=== PATIENT | male | born 1950 | race Caucasian/White ===

== ENCOUNTER 2020-05-23 10:14 | Observation (INO) | payer MEDICARE ==
[2020-05-18 13:03] LABS: BASOPHILS % 0.6 % (0.0-1.0); EOSINOPHILS # (AUTO) 0.1 (0.0-0.4); EOSINOPHILS % 1.9 % (0.0-6.0); HEMATOCRIT 38.7 % (38.2-49.6); HEMOGLOBIN 12.4 g/dL (14.0-18.0); LYMPHOCYTES # (AUTO) 0.9 (1.0-3.2); LYMPHOCYTES % 18.9 % (18.0-39.1); MEAN CORPUSCULAR HEMOGLOBIN 29.7 pg (28-32); MEAN CORPUSCULAR VOLUME 92.8 fL (81-99); MONOCYTES # (AUTO) 0.5 (0.2-0.8); MONOCYTES % 10.3 % (4.4-11.3); NEUTROPHILS # (AUTO) 3.2 (2.1-6.9); NEUTROPHILS % 67.9 % (38.7-80.0); PLATELET COUNT 197 x10e3/uL (140-360); RED BLOOD COUNT 4.17 x10e6/uL (4.3-5.7); RED CELL DISTRIBUTION WIDTH 12.4 % (11.7-14.4)
[2020-05-18 13:23] LABS: ANION GAP 12.3 mmol/L (8-16); BLOOD UREA NITROGEN 29 mg/dL (7-26); BUN/CREATININE RATIO 32 (6-25); CALCIUM 9.5 mg/dL (8.4-10.2); CARBON DIOXIDE 30 mmol/L (22-29); CHLORIDE 101 mmol/L (98-107); EST GLOMERULAR FILTRATION RATE > 60 ML/MIN (60-); GLUCOSE 112 mg/dL (74-118); POTASSIUM 4.3 mmol/L (3.5-5.1); SODIUM 139 mmol/L (136-145)
--- NOTE | 2020-05-18 13:41 | Diagnostic Imaging Report ---
X-ray chest PA and lateral History: Preop BI-RADS and: None. Findings: Central airways unremarkable. Heart size borderline normal. Atherosclerotic aorta. No pleural effusion. No pneumothorax. Bilateral linear calcific densities on the diaphragmatic pleura suggestive of calcified pleural plaques. No significant focal lung nodules or infiltrates. Linear bilateral basilar lung opacities with suggestion of faint honeycombing. Low flat diaphragms on the lateral view. Degenerative changes of the visualized skeleton. Old healed left mid lateral rib fractures. Upper abdomen unremarkable. Impression: No acute disease. Possible emphysema. A chest CT should be considered. Signed by: Pablo Johnston MD on 05/18/2020 1:37 PM
[~2020-05-23] VITALS: Ht 177.8 cm; Wt 104.8 kg
[~2020-05-23 10:14] MED LIST: ALLOPURINOL100 MG PO; AMLODIPINE BESY10 MG PO; ASPIRIN81 MG PO; FLOMAX0.4 MG PO; FUROSEMIDE40 MG PO; LOSARTAN POTAS100 MG PO; ROPIVACAINE 246.25 MG, EPINEPHRINE HCL 1:1000 1ML 0.5 MG, CLONIDINE HCL 0.08 MG, KETORO... INJ ONE; TEMAZEPAM15 MG PO
[2020-05-23] MEDS ORDERED: GABAPENTIN 300 MG CAP ONE (10:52)
[2020-05-23] MEDS ORDERED: CELECOXIB 200 MG CAP ONE (10:52)
[2020-05-23] MEDS ORDERED: CEFAZOLIN SOD 1 GM/NS 50ML 100 ML IV ONE (10:52)
[2020-05-23] MEDS ORDERED: DEXAMETHASONE SOD PHOS 10 MG/1 ML VIAL ONE (10:52)
[2020-05-23] MEDS ORDERED: SODIUM CHLORIDE 0.9% 500ML 500 ML ONE (11:08)
[2020-05-23] MEDS ORDERED: VANCOMYCIN HCL 1,000 MG ONE (11:08)
[2020-05-23] MEDS ORDERED: BACITRACIN 50,000 UNIT VIAL ONE (11:09)
[2020-05-23] MEDS ORDERED: TRANEXAMIC ACID 1,000 MG/10 ML ML ONE (11:09)
[2020-05-23] MEDS ORDERED: BUPIVACAINE 7.5MG/ML /DEXTROSE 82.5MG/ML 2 ML AMP INJ ONE (11:14)
[2020-05-23] MEDS ORDERED: DOCUSATE SODIUM 100 MG CAP PO PRN (13:15)
[2020-05-23] MEDS ORDERED: ACETAMINOPHEN 650 MG SUPP PR PRN (13:15)
[2020-05-23] MEDS ORDERED: HYDROCODONE/APAP 5MG-325MG TAB PO PRN (13:15)
[2020-05-23] MEDS ORDERED: KETOROLAC TROMETHAMINE 30 MG/ML VIAL IV PRN (13:15)
[2020-05-23] MEDS ORDERED: DIPHENHYDRAMINE HCL INJ 50 MG/ML VIAL IV PRN (13:15)
[2020-05-23] MEDS ORDERED: HYDROCODONE/APAP 7.5MG-325MG 1 EA TAB PO PRN (13:15)
[2020-05-23] MEDS ORDERED: ONDANSETRON HCL INJ 2MG/ML 2ML 2 MG/ML VIAL IV PRN (13:15)
--- NOTE | 2020-05-23 13:43 | Diagnostic Imaging Report ---
EXAMINATION: PELVIS AP 1-2 VIEWS INDICATION: Postoperative COMPARISON: None FINDINGS: AP view of the pelvis demonstrates immediate postoperative findings of right total hip replacement. Alignment is anatomic. No unexpected fracture. Postoperative soft tissue emphysema. Surgical skin tessy in place. Mild degenerative changes of the [place] left hip joint. Scattered atherosclerotic arterial calcifications. IMPRESSION: Anatomic alignment status post right total hip replacement. Signed by: Nghia Fernandez MD on 05/23/2020 1:40 PM
[2020-05-23 14:45] VITALS: BP 169/71
--- NOTE | 2020-05-23 14:45 | NUR ---
pt arrived to room 102; pt awake, alert, no signs of distress.
--- NOTE | 2020-05-23 15:17 | NUR ---
DR OSBORN OFFICE PREARRANGED FOLLOWING DISCHARGE PLAN OF: HOME [address], [address]; [phone] HOME HEALTH WITH HOME CARE PROVIDERS CONFIRMED WITH [facility] [phone] DME 3 IN ONE COMMODE, CPM AND ROLLING WALKER WITH WHEELS. PROVIDED BY [employer] [facility] [phone] DANISH SIGNED AND ON CHART COPY LEFT WITH PATIENT GAVE CARD FOR QUESTIONS AND OR CONCERNS.
[2020-05-23 15:32] LABS: BASOPHILS % 0.1 % (0.0-1.0); EOSINOPHILS % 0.1 % (0.0-6.0); HEMATOCRIT 34.7 % (38.2-49.6); HEMOGLOBIN 11.3 g/dL (14.0-18.0); LYMPHOCYTES # (AUTO) 0.4 (1.0-3.2); LYMPHOCYTES % 4.3 % (18.0-39.1); MEAN CORPUSCULAR HEMOGLOBIN 29.6 pg (28-32); MEAN CORPUSCULAR HGB CONC 32.6 g/dL (31-35); MEAN CORPUSCULAR VOLUME 90.8 fL (81-99); MONOCYTES # (AUTO) 0.1 (0.2-0.8); MONOCYTES % 0.9 % (4.4-11.3); NEUTROPHILS # (AUTO) 7.7 (2.1-6.9); NEUTROPHILS % 94.1 % (38.7-80.0); PLATELET COUNT 181 x10e3/uL (140-360); RED BLOOD COUNT 3.82 x10e6/uL (4.3-5.7); RED CELL DISTRIBUTION WIDTH 12.3 % (11.7-14.4)
[2020-05-23 15:34] VITALS: BP 169/71
[2020-05-23 15:49] LABS: BLOOD UREA NITROGEN 27 mg/dL (7-26); BUN/CREATININE RATIO 28 (6-25); CALCIUM 9.1 mg/dL (8.4-10.2); CARBON DIOXIDE 26 mmol/L (22-29); CHLORIDE 104 mmol/L (98-107); CREATININE, SERUM 0.96 mg/dL (0.72-1.25); EST GLOMERULAR FILTRATION RATE > 60 ML/MIN (60-); GLUCOSE 181 mg/dL (74-118); SODIUM 139 mmol/L (136-145)
[2020-05-23] MEDS: SODIUM CHLORIDE 0.9% 1000ML 1,000 ML IV SCH ×2 (16:19→23:15)
[2020-05-23] MEDS: ASPIRIN 325 MG TAB PO SCH (16:56)
[2020-05-23] MEDS: CELECOXIB 100 MG CAP PO SCH (16:56)
--- NOTE | 2020-05-23 17:19 | NUR ---
pt ate 100% of dinner tray. reports no nausea or vomiting at this time. will S/L pt per MD orders.
--- NOTE | 2020-05-23 17:35 | NUR ---
Dr. Harman states okay to resume pt home meds.
[2020-05-23] MEDS ORDERED: ONDANSETRON HCL INJ 2MG/ML 2ML 2 MG/ML VIAL ONE (18:35)
[2020-05-23] MEDS ORDERED: PROPOFOL IV EMULSION 10 MG/ML 20 ML VIAL ONE (18:35)
[2020-05-23] MEDS ORDERED: ETOMIDATE 2 MG/ML 10 ML INJ IV ONE (18:35)
[2020-05-23] MEDS ORDERED: ACETAMINOPHEN 1000 MG/100 ML IV ONE (18:35)
[2020-05-23] MEDS ORDERED: SEVOFLURANE INHAL SOLN 250 ML PEN BTL ONE (18:35)
--- NOTE | 2020-05-23 19:09 | NUR ---
RECEIVED REPORT FROM PREVIOUS NURSE. CALL LIGHT WITHIN REACH. PATIENT IN BED. ROUNDING PERFORMED Addendum: 05/24/20 at 0312 by Shelby Saavedra RN PATIENT IS SITTING IN THE RECLINER
[2020-05-23 20:00] VITALS: BP 135/81
[2020-05-23 20:01] VITALS: BP 169/71
--- NOTE | 2020-05-23 20:16 | Operative Report ---
DATE OF PROCEDURE: 05/23/2020 SURGEON: Ochoa Rendon MD EVALUATION ENGINEER: Jono Carranza, certified PA. PREOPERATIVE DIAGNOSIS: Osteoarthritis, right hip. POSTOPERATIVE DIAGNOSIS: Osteoarthritis, right hip. PROCEDURE: Right total hip arthroplasty. INDICATIONS: The patient is a 70-year-old gentleman, who has end-stage arthritis of his right hip. He has failed conservative management and would like to proceed with a right total hip replacement. The risks and benefits of the surgery have been discussed. All of his questions have been answered. He states he understands and wishes to proceed. PROCEDURE IN DETAIL: The patient was brought to the operating room and placed under spinal anesthetic. He received prophylactic antibiotics and tranexamic acid in the holding area. He was positioned in the left lateral decubitus position. His right hip was prepped and draped in the sterile manner. His hip was noted to be severely contracted during prepping. A preoperative time-out was performed. A posterior approach was made to the right hip. Dense and healthy muscle quality were encountered. Hemostasis was obtained with electrocautery. A self-retaining Charnley retractor was placed. The posterior capsule was carefully exposed. A large plexus of venous vessels was ligated. The posterior capsule was released and the hip was dislocated. Challenging exposure due to the muscle quality and contracture was encountered. An oscillating saw was used to resect the femoral head. Acetabular retractors were placed. Some release of the superior capsule was necessary. The true floor of the acetabulum was established with a 46 mm reamer. The socket was irrigated on several occasions with a pulsatile lavage and a spray mixture of diluted polymyxin and vancomycin spray. The socket was reamed up to 57 mm. This accomplished bleeding hemispherical cancellous bone. A Cesar/Biomet 58 mm outer diameter OsseoTi socket was then impacted into place. Fixation was quite good. Fixation was augmented with a single 25 mm cancellous screw placed into the ilium. A highly cross-linked polyethylene liner with a 36 mm inner diameter was then seated into place. Care was taken to make sure that there was no evidence of soft tissue interposition. The socket was packed with a moistly soaked lap sponge. A large posterior inferior osteophyte was removed. Attention was directed towards the proximal femur. A box cutting osteotome and taper pin reamer were used to establish entry to the femoral canal. The Taperloc broaches were impacted. A size 9 stem had good canal fill and rotational stability. Trial reductions were performed. There were some anterior impingement. Previously unrecognized anterior osteophytes of the proximal femur were removed. I switched to a high offset trial. This improved stability through a full arc of motion. The trial implants were removed. The proximal femur was thoroughly irrigated with a shower tip pulsatile lavage. A 100 mL premixed pericapsular VIGNESH injection was placed surrounding soft tissue. The high offset size 9 Taperloc implant was seated. A standard 36 mm ceramic head and neck were seated onto a clean and dry stem. A final reduction was performed. The posterior capsule was carefully repaired with interrupted #2 Ethibond. The wound was further irrigated prior to sprinkling 500 mg of vancomycin powder deep into the wound. The fascia was then closed with interrupted #2 Ethibond. The skin was closed with subcuticular Vicryl and tessy. A sterile Aquacel bandage was applied. He was returned to the supine position. He was transported to the recovery room in stable condition. Estimated blood loss was 100 mL. At the end of the procedure, all needle and sponge counts were correct. Ochoa Rendon MD DR/GIDEON /[id number]
[2020-05-23] MEDS: CEFAZOLIN SOD 1 GM/NS 50ML 50 ML IV SCH (20:35)
[2020-05-23] MEDS ORDERED: TAMSULOSIN HCL 0.4 MG CAP PO SCH (21:00)
[2020-05-23] MEDS ORDERED: TEMAZEPAM 15 MG CAP PO SCH (21:00)
[2020-05-23] MEDS ORDERED: ZOLPIDEM TARTRATE 5 MG TAB PO PRN (21:00)
[2020-05-24] VITALS: BP 129/78
[2020-05-24 04:00] VITALS: BP 123/60
[2020-05-24] MEDS: CEFAZOLIN SOD 1 GM/NS 50ML 50 ML IV SCH ×2 (04:05→13:07)
[2020-05-24 05:19] LABS: HEMATOCRIT 32.8 % (38.2-49.6); HEMOGLOBIN 10.8 g/dL (14.0-18.0)
--- NOTE | 2020-05-24 06:17 | Consultation ---
DATE OF CONSULTATION: REASON FOR CONSULTATION: Postop medical management. HISTORY OF PRESENT ILLNESS: The patient is a 70-year-old gentleman, status post right hip arthroplasty for end-stage osteoarthritis, who is doing very well postoperatively with minimal pain in the right hip. He denies fever, chills, nausea, vomiting, headache, shortness of breath, or dizziness. PAST MEDICAL HISTORY: Significant for hypertension, gout, and BPH. MEDICATIONS: See MAR. ALLERGIES: NONE. SOCIAL HISTORY: Nonsmoker and nondrinker. . Retired, lives at home. FAMILY HISTORY: Noncontributory. PHYSICAL EXAMINATION: VITAL SIGNS: Temperature 97.8, pulse 89, blood pressure 129/78, sats 96% on room air. GENERAL: He is no apparent distress, sitting in the chair. CARDIOVASCULAR: Regular rate and rhythm. LUNGS: Clear to auscultation. ABDOMEN: Good bowel sounds. Soft, nondistended. EXTREMITIES: No clubbing or cyanosis. NEUROLOGIC: He moves all extremities x4. ASSESSMENT AND PLAN: 1. Gout. We will continue with his allopurinol. 2. Benign prostatic hypertrophy. We will continue with his tamsulosin. 3. Hypertension. We will continue with his blood pressure medication. 4. Right hip pain. We will continue with postoperative care and physical therapy. Please see hospital chart for full details. MD ADRIEL Garcia/GIDEON /[id number]
--- NOTE | 2020-05-24 07:20 | NUR ---
GAVE BEDSIDE SHIFT REPORT TO ONCOMING NURSE. CALL LIGHT WITHIN REACH. PATIENT IN BED. HOURLY ROUNDING PERFORMED.
[2020-05-24 08:11] VITALS: BP 138/58
[2020-05-24 08:34] VITALS: BP 138/58
[2020-05-24] MEDS ORDERED: LOSARTAN POTASSIUM 100 MG TAB PO SCH (09:00)
[2020-05-24] MEDS ORDERED: ALLOPURINOL 100 MG TAB PO SCH (09:00)
[2020-05-24] MEDS ORDERED: FUROSEMIDE 20 MG TAB PO SCH (09:00)
[2020-05-24] MEDS ORDERED: AMLODIPINE BESYLATE 10 MG TAB PO SCH (09:00)
[2020-05-24] MEDS ORDERED: FUROSEMIDE 40 MG TAB PO SCH (09:00)
[2020-05-24] MEDS: ASPIRIN 325 MG TAB PO SCH (09:12)
[2020-05-24] MEDS: CELECOXIB 100 MG CAP PO SCH (09:13)
[2020-05-24] MEDS: SODIUM CHLORIDE 0.9% 1000ML 1,000 ML IV SCH (09:15)
[2020-05-24] MEDS ORDERED: ACETAMINOPHEN 1000 MG/100 ML IV PRN (13:15)
[2020-05-24] MEDS ORDERED: CELECOXIB 200 MG CAP PO SCH (17:00)
== END 2020-05-24 14:47 | disposition home or self-care (01) ==
LOC: OR 10:14 → PACU V 13:06 → MED/SURG 14:49
PROVIDERS: ADMIT Specialist; ATTEND Specialist
DX: M17.0 Bilateral primary osteoarthritis of knee (principal); I10 Essential (primary) hypertension; Z96.651 Presence of right artificial knee joint; Z11.59 Encounter for screening for other viral diseases; Z01.812 Encounter for preprocedural laboratory examination
CPT/HCPCS: 27447; 36415 ×3; 71046; 72170; 80048 ×2; 85014; 85018; 85025 ×2; 86850; 86900; 86920; 93005; 97110; 97116 ×2; 97139; 97161; G0378 ×2; J0131; J0171; J0690 ×2; J1100; J1885 ×2; J2405 ×2; J2704; J2795; J3370; J7030; J7040; U0002

== ENCOUNTER 2021-01-08 06:23 | Observation (INO) | payer MEDICARE ==
[~2021-01-08] VITALS: Ht 175.3 cm; Wt 104.3 kg
[~2021-01-08 06:23] MED LIST changes: +AMOXICILLIN500 MG PO; +BUMETANIDE1 MG PO; +FINASTERIDE5 MG PO; +REFRESH OU; +RESTASIS1 EACH OU
[2021-01-08] MEDS ORDERED: DEXAMETHASONE SOD PHOS 10 MG/1 ML VIAL ONE (07:32)
[2021-01-08] MEDS ORDERED: CELECOXIB 200 MG CAP ONE (07:32)
[2021-01-08] MEDS ORDERED: CEFAZOLIN SOD 1 GM/NS 50ML 100 ML IV ONE (07:33)
[2021-01-08] MEDS ORDERED: GABAPENTIN 300 MG CAP ONE (07:33)
[2021-01-08] MEDS ORDERED: TRANEXAMIC ACID 1,000 MG/10 ML ML ONE (07:48)
[2021-01-08] MEDS ORDERED: SODIUM CHLORIDE 0.9% 500ML 500 ML ONE (07:48)
[2021-01-08] MEDS ORDERED: VANCOMYCIN HCL 1,000 MG ONE (07:48)
[2021-01-08] MEDS ORDERED: ACETAMINOPHEN 1000 MG/100 ML 100 ML IV ONE (07:59)
[2021-01-08] MEDS ORDERED: SODIUM CHLORIDE 0.9% 50ML 50 ML ONE (07:59)
[2021-01-08] MEDS ORDERED: FAMOTIDINE 20 MG/2 ML VIAL IV ONE (07:59)
[2021-01-08] MEDS ORDERED: ROPIVACAINE 246.25 MG, EPINEPHRINE HCL 1:1000 1ML 0.5 MG, CLONIDINE HCL 0.08 MG, KETORO... INJ ONE ×5 (08:15)
[2021-01-08] MEDS ORDERED: ACETAMINOPHEN 650 MG SUPP PR PRN (10:00)
[2021-01-08] MEDS ORDERED: DOCUSATE SODIUM 100 MG CAP PO PRN (10:00)
[2021-01-08] MEDS ORDERED: KETOROLAC TROMETHAMINE 30 MG/ML VIAL IV PRN (10:00)
[2021-01-08] MEDS ORDERED: HYDROCODONE/APAP 7.5MG-325MG 1 EA TAB PO PRN (10:00)
[2021-01-08] MEDS ORDERED: DIPHENHYDRAMINE HCL INJ 50 MG/ML VIAL IV PRN (10:00)
[2021-01-08] MEDS ORDERED: HYDROCODONE/APAP 5MG-325MG TAB PO PRN (10:00)
[2021-01-08] MEDS: ONDANSETRON HCL INJ 2MG/ML 2ML 2 MG/ML VIAL IV PRN ×2 (10:20→12:00)
[2021-01-08] MEDS ORDERED: FENTANYL CITRATE/PF 100MCG/2 ML INJ ONE (11:01)
[2021-01-08 11:49] VITALS: BP 144/64
[2021-01-08 12:00] VITALS: BP 144/64
[2021-01-08] MEDS: SODIUM CHLORIDE 0.9% 1000ML 1,000 ML IV SCH ×2 (12:14→21:18)
[2021-01-08] MEDS ORDERED: SEVOFLURANE INHAL SOLN 250 ML PEN BTL ONE (12:21)
[2021-01-08] MEDS ORDERED: LIDOCAINE HCL 2% LOCAL INJ 5 ML SDV VIAL INJ ONE (12:21)
[2021-01-08] MEDS ORDERED: NEOSTIGMINE 1 MG/ML 10ML VIAL ONE (12:21)
[2021-01-08] MEDS ORDERED: METOCLOPRAMIDE HCL 10 MG/2ML VIAL ONE (12:21)
[2021-01-08] MEDS ORDERED: ROCURONIUM BROMIDE 10 MG/ML 5ML VIAL IV ONE (12:21)
[2021-01-08] MEDS ORDERED: PROPOFOL IV EMULSION 10 MG/ML 20 ML VIAL ONE (12:21)
[2021-01-08] MEDS ORDERED: GLYCOPYRROLATE INJ 0.2 MG/ML VIAL ONE (12:21)
[2021-01-08] MEDS ORDERED: ROPIVACAINE 0.5% 5 MG/ML 30 ML SDV ONE (12:54)
[2021-01-08] MEDS ORDERED: LIDOCAINE 2%/ EPINEPHRINE 20ML MDV ONE (12:54)
[2021-01-08] MEDS ORDERED: ACETAMINOPHEN 1000 MG/100 ML IV PRN (14:00)
[2021-01-08 15:45] VITALS: BP 153/63
[2021-01-08] MEDS: CEFAZOLIN SOD 1 GM/NS 50ML 50 ML IV SCH (15:47)
[2021-01-08] MEDS: ASPIRIN 325 MG TAB PO SCH (17:03)
[2021-01-08] MEDS: CELECOXIB 100 MG CAP PO SCH (17:03)
[2021-01-08 20:00] VITALS: BP 146/75
[2021-01-08] MEDS ORDERED: ZOLPIDEM TARTRATE 5 MG TAB PO PRN (21:00)
[2021-01-09] VITALS: BP 121/69
[2021-01-09] MEDS: CEFAZOLIN SOD 1 GM/NS 50ML 50 ML IV SCH ×2 (00:20→08:53)
[2021-01-09] MEDS: SODIUM CHLORIDE 0.9% 1000ML 1,000 ML IV SCH (05:21)
[2021-01-09 05:54] LABS: HEMATOCRIT 30.6 % (38.2-49.6)
[2021-01-09 08:09] VITALS: BP 143/55
[2021-01-09] MEDS: CELECOXIB 100 MG CAP PO SCH (08:53)
[2021-01-09] MEDS: ASPIRIN 325 MG TAB PO SCH (08:53)
[2021-01-09 08:58] VITALS: BP 143/55
[2021-01-09] MEDS ORDERED: ALLOPURINOL 100 MG TAB PO SCH (09:00)
[2021-01-09] MEDS ORDERED: FINASTERIDE 5 MG TAB PO SCH (09:00)
[2021-01-09] MEDS ORDERED: LOSARTAN POTASSIUM 100 MG TAB PO SCH (09:00)
[2021-01-09] MEDS ORDERED: ONDANSETRON HCL 4 MG ORAL DISINTEGRATING TAB PO PRN (10:30)
[2021-01-09 11:28] VITALS: BP 141/56
[2021-01-09] MEDS ORDERED: CELECOXIB 200 MG CAP PO SCH (17:00)
== END 2021-01-09 13:08 | disposition home or self-care (01) ==
LOC: OR 06:23 → PACU V 09:58 → MED/SURG 11:02
PROVIDERS: ADMIT Specialist; ATTEND Specialist
DX: M17.0 Bilateral primary osteoarthritis of knee (principal); Z20.822 Contact with and (suspected) exposure to COVID-19; Z01.818 Encounter for other preprocedural examination; Z96.651 Presence of right artificial knee joint; Z96.641 Presence of right artificial hip joint; I10 Essential (primary) hypertension
CPT/HCPCS: 27447; 36415; 73560; 85014; 85018; 86850 ×2; 86900 ×2; 86920 ×2; 97110 ×2; 97116 ×2; 97139; 97161; 97530; C1713 ×2; C1776; G0378 ×2; J0131; J0171 ×2; J0690 ×2; J1100; J1885 ×2; J2405; J2795 ×2; J3010; J3370; J7030; J7040; U0002 ×2; J2001; J2710; J2765